=== PATIENT | male | born 1980 | race Caucasian/White ===

== ENCOUNTER 2017-10-03 11:27 | Emergency (ER) | payer MEDICAID ==
[2017-10-03 11:48] VITALS: RESP 16
--- NOTE | 2017-10-03 13:27 | EDPHY ---
General Narrative: CHIEF COMPLAINT: Albuterol refill, Suboxone refill HISTORY OF PRESENT ILLNESS: Patient presents with complaints of needing albuterol refill and Suboxone refill. He says he has history of asthma and uses albuterol frequently. He has a recent lower respiratory infection. He does not want to be evaluated for it as he feels that is mild but does need more albuterol. No chest pain or shortness of breath. Patient cough. He also complains of previous opioid abuse now on Suboxone for the past few months. He ran out of his Suboxone 2 days ago and asking for refill. He is starting to feel shaky and withdrawal from it. No seizure-like activity. No associated complaints or modifying factors. REVIEW OF SYSTEMS: Ten systems reviewed and are negative unless otherwise noted in the HPI PCP: None currently SPECIALISTS: Renée for Suboxone care PAST MEDICAL HISTORY: Previous opiate dependency, chronic asthma controlled PAST SURGICAL HISTORY: No recent surgeries SOCIAL HISTORY: Nonsmoker. FAMILY HISTORY: Noncontributory EXAMINATION General Appearance: Alert, no distress Head: normocephalic, atraumatic Eyes: Pupils equal and round, no conjunctival pallor or injection ENT, Mouth: Mucous membranes moist. Uvula midline. Neck: Normal inspection, supple, non-tender Respiratory: Lungs are clear to auscultation. No wheezing, rhonchi or crackles Cardiovascular: Regular rate and rhythm. No murmur Gastrointestinal: Abdomen is soft and nontender Back: non-tender, no bony abnormalities Neurological: A&O, nonfocal, normal gait Skin: Warm and dry, no rash. No petechiae or purpura Extremities: Nontender, no pedal edema Psychiatric: Mood and affect normal DIFFERENTIAL DIAGNOSES: Including but not limited to chronic asthma, asthma exacerbation, viral illness , pneumonia, bronchitis, opioid dependency MDM: 1:05 p.m. Chronic asthma with request of albuterol inhaler. He has no chest pain. Vital signs are within normal limits without hypoxemia. He is also requesting Suboxone that I had a very lengthy discussion with him about. I informed him that we will not be refilling this. We discuss clonidine and hydroxyzine medications for symptomatic relief of withdrawal. He is in no acute distress and agrees with this plan. I will ask case management to visit with the patient. 1:25 p.m. Barbara PRASAD will visit with the patient provide outpatient resources for Suboxone help. The patient is appreciated this. He is in no acute distress. I do not feel he warrants any further care at this time. He will be discharged home with the above plan and ED precautions. Discharged in stable condition SUPERVISION: Patient was independently examined, but I discussed the case with my secondary supervising physician Dr. Herring - History Smoking Status: Light smoker - Objective Vital Signs: Initial Vital Signs Temperature (C) 99.1 F 10/03/17 11:46 Heart Rate 108 H 10/03/17 11:46 Respiratory Rate 16 10/03/17 11:46 Blood Pressure 133/94 H 10/03/17 11:46 O2 Sat (%) 97 10/03/17 11:46 O2 Delivery Mode Room Air Allergies/Adverse Reactions: No Known Drug Allergies Allergy (Verified 10/03/17 11:48) Home Medications: Medication Instructions Recorded Albuterol [Proventil Inhaler HFA 1 - 2 puffs IH Q4H PRN #1 mdi 10/03/17 (*)] Suboxone 8 mg-2 mg Tablet 10/03/17 clonIDINE [Catapres (*)] 0.1 mg PO TID #5 tab 10/03/17 hydrOXYzine HCL [Hydroxyzine HCl] 50 mg PO Q6-8PRN PRN #7 tablet 10/03/17 Departure - Departure Disposition: Home, Routine, Self-Care Clinical Impression: Opioid dependence in controlled environment Asthma without status asthmaticus Qualifiers: Asthma severity: mild Asthma persistence: intermittent Asthma complication type : uncomplicated Qualified Code(s): J45.20 - Mild intermittent asthma, uncomplicated Condition: Good Instructions: Buprenorphine/Naloxone (Into the mouth), Asthma (ED) Additional Instructions: 1. Medications as prescribed as needed 2. Contact the on-call primary care physician as provided 3. ED precautions as discussed Referrals: [facility],. [Clinic] - As per Instructions Pamela Weber MD [[facility] [place] Primary Care Provider] - As per Instructions Prescriptions: Albuterol [Proventil Inhaler HFA (*)] 1 - 2 puffs IH Q4H PRN #1 mdi PRN Reason: Short Of Breath/Dyspnea clonIDINE [Catapres (*)] 0.1 mg PO TID #5 tab hydrOXYzine HCL [Hydroxyzine HCl] 50 mg PO Q6-8PRN PRN #7 tablet PRN Reason: Itching
[2017-10-03 13:43] VITALS: BP 121/88; PULSE 88; TEMP 98.2; O2SAT 96
--- NOTE | 2017-10-03 14:13 | ASDISCHSUM ---
Discharge Information Plan Status:Home with No Needs Medically Cleared to Leave: Discharge Date:10/03/2017 01:46 PM CM D/C Disposition:Home, Routine, Self-Care ADT D/C Disposition:Home, Routine, Self-Care Projected Discharge Date:10/03/2017 01:46 PM Transportation at D/C:Self Discharge Delay Reason: Follow-Up Date:10/03/2017 01:46 PM Discharge Slot: Final Diagnosis: Placement Information Patient Contact Information Contact Name:RAQUEL Relationship: Address: Work Phone: City: [facility] Phone: State/Zip Code: Email: Financial Information Financial Class: Primary Plan Desc:[employer] Primary Plan Number:[id number] Secondary Plan Desc: Secondary Plan Number: Assessment Information [facility] Progress Note CM Note CM Note Notes: Requested to speak to patient regarding local Suboxone providers and resources. Patient has been receiving Suboxone treatment through [facility] in [place] and that their [place] location has closed. Patient ran out of his Suboxone two days ago and called [facility] on but the earliest they were able to get him an appt is on Wednesday at 1pm. Patient recently moved to [place] and interested in closer treatment clinic options. Patient provided information on [facility] and [facility] (including [place] location). Patient also encouraged to follow up at [facility] for his asthma and other healthcare needs. Patient provided Rxns and list of [facility] locations to get them filled. Patient pleasant and appreciative of assistance. CM available PRN. Date Signed: 10/03/2017 02:10 PM Electronically Signed By:Barbara Shin RN LACE LACE Acuity / Level of Care Answers: No. Comorbidities - select Answers: Chronic pulmonary disease all that apply Emergency dept visits in Answers: 1 last 6 months Score: 3 Date Signed: 10/03/2017 02:12 PM Electronically Signed By:Barbara Shin RN Intervention Information Intervention Type:Health Clinic Date of Service:10/03/2017 02:12 PM Patient Type:Emergency Room Staff Member:SHANICE Shin, Barbara Hours:0.5 Discipline:Baggage Smasher Severity: Comment:Suboxone providers/clinics and [facility] referrals.
== END 2017-10-03 13:46 | disposition home or self-care (01) ==
DX: F11.20 Opioid dependence, uncomplicated (principal); J45.20 Mild intermittent asthma, uncomplicated; F17.200 Nicotine dependence, unspecified, uncomplicated

== ENCOUNTER 2017-10-24 15:02 | Emergency (ER) | payer MEDICAID ==
--- NOTE | 2017-10-24 15:22 | CPEKG ---
Heart Rate: 86 RR Interval: 698 P-R Interval: 132 QRSD Interval: 76 QT Interval: 352 QTC Interval: 421 P Norman: 63 QRS Norman: 72 T Wave Norman: 58 EKG Severity - BORDERLINE ECG - EKG Impression: SINUS RHYTHM EKG Impression: PROBABLE LEFT ATRIAL ABNORMALITY Electronically Signed By: Hortensia Vela 25-Oct-2017 15:49:25
[2017-10-24 15:25] VITALS: TEMP 98.4
--- NOTE | 2017-10-24 15:39 | EDPHY ---
HPI/HX/ROS/PE/MDM Narrative: CHIEF COMPLAINT: Right-sided chest pain HISTORY OF PRESENT ILLNESS: The patient is a 37 y/o male with a history of asthma and a left-sided pneumothorax complaining of right-sided chest pain, onset this morning. The pain is aggravated when turning his chest, coughing, or breathing deeply. Denies pain yesterday or chest discomfort when he went to bed last night. His left-sided pneumothorax was associated with dyspnea and general left-sided chest pain. The pain today is not as severe as his prior pneumothorax. The pain is currently a 6/10. Denies recent fall, working out, or illness. Denies taking medications to relieve symptoms. No fever, chills, shortness of breath, palpitations, vomiting, diarrhea, urinary complaints, headache, lightheadedness. REVIEW OF SYSTEMS: Aside from elements discussed in the HPI, a comprehensive 10-point review of systems was reviewed and is negative. PAST MEDICAL HISTORY: Asthma,left-sided pneumothorax SOCIAL HISTORY: Transient, single, opiate abuse. No marijuana or drug use. VITAL SIGNS: BP: 131/79, others reviewed by me GENERAL: Well-developed, well-nourished, resting comfortably in no respiratory distress. HEENT: Atraumatic. Eyes: No icterus, no injection. Mouth: moist mucous membranes. No erythema or lesions. Neck: supple with no adenopathy. LUNGS: Diminished at bases. Clear to auscultation superiorly, bilaterally; no wheezes, rhonchi or rales. CARDIAC: Right-sided anterior intercostal point tenderness. No crepitus. Regular rate and rhythm, no rubs, murmurs or gallops. ABDOMEN: Soft, nontender, nondistended, bowel sounds normal. BACK: No CVA tenderness. EXTREMITIES: No trauma. No edema. Range of motion is normal throughout. NEURO: Alert and oriented, grossly nonfocal. SKIN: Warm and dry, no rash. PSYCHIATRIC: Normal mentation, no agitation. Portions of this note were transcribed by a curator medical museum. I personally performed a history, physical exam, medical decision making, and confirmed accuracy of information the transcribed note. ED Course: The patient is a 37 y/o male with a history of asthma and a left-sided pneumothorax presenting with right-sided chest pain. On exam he has right-sided anterior intercostal point tenderness without crepitus. He also has diminished breath sounds at the bases bilaterally. EKG and chest x-ray ordered. 1520: 12-LEAD EKG: Please see the full report in [employer] Master. My interpretation: Normal sinus rhythm with a rate of 86 1557: I reviewed chest x-ray, there are no acute findings. 1558: Reassessed patient and discussed imaging findings. Labs ordered to rule out cardiac or pulmonary etiology for chest pain. 1L IV NS and 30mg IV Toradol administered. 1715: Reassessed patient and discussed normal laboratory results. He is not feeling better after IVF and Toradol. GI cocktail administered. 1745: Reassessed patient after GI cocktail, he is still not feeling better. The Toradol did alleviate his pain moderately. I have prescribed him Tramadol and advised him to follow up with [facility]. Return precautions provided; patient is comfortable with this plan. MDM: After history and physical examination, the differential for chest pain was considered, including but not limited to, PTX, pneumomediastinum, ashtma, bronchospasm, PE, myocardial ischemia, acute coronary syndrome, chest wall pain , pleural inflammation and pulmonary infectious causes. - Data Points Imaging Results: CXR: Impression: No acute abnormality. Dictated By: Neptali Dickerson MD Imaging: I viewed and interpreted images myself Laboratory Results: Laboratory Results 10/24/17 15:31 10/24/17 15:31 Medications Given: Discontinued Medications Al Hydroxide/Mg Hydroxide (Maalox Susp) 30 ml PO ONCE ONE Stop: 10/24/17 17:26 Last Admin: 10/24/17 17:37 Dose: 30 ml Hyoscyamine Sulfate (Levsin, Hyomax-Sl) 0.25 mg PO ONCE ONE Stop: 10/24/17 17:26 Last Admin: 10/24/17 17:37 Dose: 0.25 mg Sodium Chloride (Ns) 1,000 mls @ 0 mls/hr IV EDNOW ONE; Wide Open PRN Reason: Protocol Stop: 10/24/17 16:00 Last Admin: 10/24/17 16:14 Dose: 1,000 mls Ketorolac Tromethamine (Toradol) 30 mg IVP EDNOW ONE Stop: 10/24/17 16:02 Last Admin: 10/24/17 16:14 Dose: 30 mg Lidocaine (Lidocaine 2% Viscous) 15 ml PO ONCE ONE Stop: 10/24/17 17:26 Last Admin: 10/24/17 17:37 Dose: 15 ml General Time Seen by Provider: 10/24/17 15:30 Initial Vital Signs: Initial Vital Signs Temperature (C) 36.6 C 10/24/17 15:05 Heart Rate 83 10/24/17 15:05 Respiratory Rate 16 10/24/17 15:05 Blood Pressure 134/69 H 10/24/17 15:05 O2 Sat (%) 98 10/24/17 15:05 O2 Delivery Mode Room Air Allergies/Adverse Reactions: No Known Drug Allergies Allergy (Verified 10/24/17 15:05) Home Medications: Medication Instructions Recorded Albuterol [Proventil Inhaler HFA 1 - 2 puffs IH Q4H PRN #1 mdi 10/03/17 (*)] Suboxone 8 mg-2 mg Tablet 10/03/17 clonIDINE [Catapres (*)] 0.1 mg PO TID #5 tab 10/03/17 hydrOXYzine HCL [Hydroxyzine HCl] 50 mg PO Q6-8PRN PRN #7 tablet 10/03/17 Tramadol HCl 50 mg PO TID PRN #20 tablet 10/24/17 Departure - Departure Disposition: Home, Routine, Self-Care Clinical Impression: Chest wall pain, Chest pain Condition: Good Instructions: Chest Pain (ED), Chest Wall Pain (ED) Additional Instructions: Take Tramadol as prescribed. Follow-up with your primary doctor within 72 hours. Return to the Emergency Department for fever, chest pain, shortness of breath, increasing pain or other worsening of condition. Referrals: [facility],. [Clinic] - As per Instructions Prescriptions: Tramadol HCl 50 mg PO TID PRN #20 tablet PRN Reason: Pain Report Scribed for: Hortensia Vela Report Scribed by: Milly Galdamez Date of Report: 10/24/17 Time of Report: 15:31
[2017-10-24] MEDS ORDERED: NS 1,000 ML IV ONE (15:59)
[2017-10-24] MEDS ORDERED: KETOROLAC 30 MG/1 ML SDV IVP ONE (16:01)
[2017-10-24 16:07] LABS: PLATELET COUNT 273 10^3/uL (150-400)
[2017-10-24 16:18] VITALS: RESP 18
[2017-10-24 17:20] VITALS: O2SAT 99
[2017-10-24] MEDS ORDERED: MAG HYDROX/AL HYDROX/SIMETH 30 ML UDCUP PO ONE (17:25)
[2017-10-24] MEDS ORDERED: HYOSCYAMINE SULFATE 0.125 MG TAB PO ONE (17:25)
[2017-10-24] MEDS ORDERED: LIDOCAINE 2% VISCOUS 15 ML UDCUP PO ONE (17:25)
[2017-10-24 17:53] VITALS: BP 123/73; PULSE 73
== END 2017-10-24 18:00 | disposition home or self-care (01) ==
DX: R07.89 Other chest pain (principal); J45.909 Unspecified asthma, uncomplicated
CPT/HCPCS: 96374; J1885

== ENCOUNTER 2018-11-12 07:06 | Emergency (ER) | payer MEDICAID ==
[2018-11-12] MEDS ORDERED: ONDANSETRON DISINTEGRATING 4 MG TAB PO ONE (07:35)
--- NOTE | 2018-11-12 07:40 | EDPHY ---
H & P Stated Complaint: at [facility] for heroin w/d, sent here for bradycardia Time Seen by Provider: 11/12/18 07:28 HPI/ROS: CHIEF COMPLAINT: Heroin withdrawal, bradycardia HISTORY OF PRESENT ILLNESS: The patient is a 38-year-old man who is sent from the [facility] for asymptomatic bradycardia with a heart rate in the 40s. He is currently going through heroin withdrawal for the last 2 days. He is taking hydroxyzine and Chantix. He denies beta-blockers. He denies clonidine. He has been nauseous and vomiting. He is slightly hypertensive. He denies chest pain or palpitations or shortness of breath. No history of arrhythmias. He is no longer taking Suboxone. No lightheadedness or dizziness. Severity: Moderate Modifying factors: None REVIEW OF SYSTEMS: Constitutional: denies: chills, fever, recent illness, recent injury EENTM: denies: blurred vision, double vision, nose congestion Respiratory: denies: cough, shortness of breath Cardiac: See HPI denies: chest pain, irregular heart rate, lightheadedness, palpitations Gastrointestinal/Abdominal: See HPI denies: abdominal pain, diarrhea, blood streaked stools Genitourinary: denies: dysuria, frequency, hematuria, pain Musculoskeletal: denies: joint pain, muscle pain Skin: denies: lesions, rash, jaundice, bruising Neurological: denies: headache, numbness, paresthesia, tingling, dizziness, weakness Hematologic/Lymphatic: denies: blood clots, easy bleeding, easy bruising Immunologic/allergic: denies: HIV/AIDS, transplant 10 systems reviewed and negative except as noted EXAM: GENERAL: Well-appearing, well-nourished and in no acute distress. HEAD: Atraumatic, normocephalic. EYES: Pupils equal round and reactive to light, extraocular movements intact, sclera anicteric, conjunctiva are normal. ENT: TMs normal, nares patent, oropharynx clear without exudates. Moist mucous membranes. NECK: Normal range of motion, supple without lymphadenopathy or JVD. LUNGS: Breath sounds clear to auscultation bilaterally and equal. No wheezes rales or rhonchi. HEART: Slightly bradycardic, Regular rate and rhythm without murmurs, rubs or gallops. ABDOMEN: Soft, nontender, normoactive bowel sounds. No guarding, no rebound. No masses appreciated. BACK: No CVA tenderness, no spinal tenderness, step-offs or deformities EXTREMITIES: Normal range of motion, no pitting or edema. No clubbing or cyanosis. NEUROLOGICAL: Cranial nerves II through XII grossly intact. Normal speech, normal gait. 5/5 strength, normal movement in all extremities, normal sensation , normal reflexes PSYCH: Normal mood, normal affect. SKIN: Warm, dry, normal turgor, no visible rashes or lesions. Source: Patient Exam Limitations: No limitations - Personal History Current Tetanus/Diphtheria Vaccine: Yes - Medical/Surgical History Hx Asthma: Yes Hx Chronic Respiratory Disease: No Hx Diabetes: No Hx Cardiac Disease: No Hx Renal Disease: No Hx Cirrhosis: No Hx Alcoholism: No Hx HIV/AIDS: No Hx Splenectomy or Spleen Trauma: No Other PMH: left shoulder surgery, opiate abuse - Family History Significant Family History: No pertinent family hx - Social History Smoking Status: Current every day smoker Alcohol Use: None Drug Use: Heroin Constitutional: Initial Vital Signs Temperature (C) 36.6 C 11/12/18 07:10 Heart Rate 45 L 11/12/18 07:10 Respiratory Rate 16 11/12/18 07:10 Blood Pressure 148/88 H 11/12/18 07:10 O2 Sat (%) 96 11/12/18 07:10 O2 Delivery Mode Room Air Allergies/Adverse Reactions: No Known Drug Allergies Allergy (Verified 10/24/17 15:05) Home Medications: Medication Instructions Recorded Albuterol [Proventil Inhaler HFA 1 - 2 puffs IH Q4H PRN #1 mdi 10/03/17 (*)] Medical Decision Making - Diagnostics EKG Interpretation: An EKG obtained and was read and documented in trace view. Please see trace view for full reading and report. Sinus bradycardia, no acute ischemic changes ED Course/Re-evaluation: The patient is likely reflex bradycardic because he is hypertensive from his withdrawal. He primarily complains of nausea vomiting. Will treat with Zofran and oral hydration. Will obtain EKG. Otherwise the patient would like to go [facility] to [facility]. He has no complaints other than the nausea. He is ambulating without difficulty. His vomiting has been controlled. Electrolytes unremarkable. Patient declines further workup or testing. Differential Diagnosis: Partial list of the Differential diagnosis considered include but were not limited to; bradycardia, hypertension, opiate withdrawal and although unlikely based on the history and physical exam, I also considered arrhythmia, electrolyte abnormality, myocardial infarction, PE. - Data Points Laboratory Results: 11/12/18 07:55 POC Hgb 17.0 gm/dL gm/dL (13.7-17.5) POC Hct 50 % % (40-51) POC Sodium 141 mEq/L mEq/L (135-145) POC Potassium 4.1 mEq/L mEq/L (3.3-5.0) POC Chloride 104 mEq/L mEq/L (97-110) POC Total CO2 23 mEq/L mEq/L (22-31) POC BUN 19 mg/dL mg/dL (7-23) POC Creatinine 0.8 mg/dL mg/dL (0.7-1.3) POC Glucose 155 mg/dL H mg/dL (70-100) Medications Given: Discontinued Medications Ondansetron HCl (Zofran Odt) 4 mg PO EDNOW ONE Stop: 11/12/18 07:36 Last Admin: 11/12/18 07:37 Dose: 4 mg Point of Care Test Results: Chemistry 11/12/18 07:55 POC Sodium 141 mEq/L mEq/L (135-145) POC Potassium 4.1 mEq/L mEq/L (3.3-5.0) POC Chloride 104 mEq/L mEq/L (97-110) POC Total CO2 23 mEq/L mEq/L (22-31) POC BUN 19 mg/dL mg/dL (7-23) POC Creatinine 0.8 mg/dL mg/dL (0.7-1.3) POC Glucose 155 mg/dL H mg/dL (70-100) ISTAT H&H 11/12/18 07:55 POC Hgb 17.0 gm/dL gm/dL (13.7-17.5) POC Hct 50 % % (40-51) Departure - Departure Disposition: Home, Routine, Self-Care Clinical Impression: Heroin withdrawal Hypertension Qualifiers: Hypertension type: unspecified Qualified Code(s): I10 - Essential (primary) hypertension Condition: Fair Instructions: Hypertension (ED), Opioid Withdrawal (ED) Referrals: NONE *PRIMARY CARE P,. [Primary Care Provider] - As per Instructions [facility],. [Clinic] - As per Instructions
--- NOTE | 2018-11-12 07:43 | CPEKG ---
Test Reason : OPEN Blood Pressure : / mmHG Vent. Rate : 044 BPM Atrial Rate : 000 BPM P-R Int : 128 ms QRS Dur : 078 ms QT Int : 469 ms P-R-T Axes : 055 075 062 degrees QTc Int : 402 ms Sinus bradycardia Confirmed by Olivier Nash ([id number]) on 11/12/2018 7:42:51 AM Referred By: Olivier Nash Confirmed By:Olivier Nash
[2018-11-12 08:09] VITALS: BP 142/90
== END 2018-11-12 08:09 | disposition home or self-care (01) ==
LOC: EDUNIT#
DX: F11.23 Opioid dependence with withdrawal (principal); I10 Essential (primary) hypertension
CPT/HCPCS: 82435-PO; 82565-PO; 82947-PO; 84132-PO; 84295-PO; 84520-PO; 85014-ER

== ENCOUNTER 2019-02-09 12:47 | Emergency (ER) | payer MEDICAID ==
--- NOTE | 2019-02-09 13:58 | EDPHY ---
H & P Stated Complaint: PAIN/SOB R UPPER LUNG HX SPONTANEOUS PNEUMO ON L IN PAST Time Seen by Provider: 02/09/19 12:55 HPI/ROS: CHIEF COMPLAINT: Right sided chest pain HISTORY OF PRESENT ILLNESS: 38-year-old male with a history of left spontaneous pneumothorax presents with right-sided chest pain. Onset of right upper chest pain this morning, gradually increasing. The pain is moderate, increases with torso movement and with deep inspiration. Similar to prior pneumothorax 8 years ago. No shortness of breath, recent URI or cough. No trauma. REVIEW OF SYSTEMS: complete 10 point ROS reviewed and is negative except for the noted elements in the HPI - Personal History Current Tetanus Diphtheria and Acellular Pertussis (TDAP): Yes - Medical/Surgical History Hx Asthma: Yes Hx Chronic Respiratory Disease: No Hx Diabetes: No Hx Cardiac Disease: No Hx Renal Disease: No Hx Cirrhosis: No Hx Alcoholism: No Hx HIV/AIDS: No Hx Splenectomy or Spleen Trauma: No Other PMH: left shoulder surgery, opiate abuse L SPONTANEOUS PNEUMOTHORAX - Family History Significant Family History: No pertinent family hx - Social History Smoking Status: Current every day smoker Alcohol Use: Sober - Physical Exam Exam: General Appearance: Alert, pleasant Eyes: Pupils equal and round, no conjunctival pallor ENT, Mouth: Mucous membranes moist Neck: Normal inspection Respiratory: normal inspection, no tenderness, Lungs are clear to auscultation Cardiovascular: Regular rate and rhythm, no murmur Gastrointestinal: Abdomen is soft and nontender Neurological: A&O, nonfocal exam Skin: Warm and dry, no rash Extremities: no change in pain with Rt shoulder ROM, no pedal edema or calf tenderness Psychiatric: Mood and affect normal Constitutional: Initial Vital Signs Temperature (C) 37.2 C 02/09/19 12:48 Heart Rate 85 02/09/19 12:48 Respiratory Rate 18 02/09/19 12:48 Blood Pressure 135/80 H 02/09/19 12:48 O2 Sat (%) 97 02/09/19 12:48 O2 Delivery Mode Room Air Allergies/Adverse Reactions: No Known Drug Allergies Allergy (Verified 02/09/19 12:48) Home Medications: Medication Instructions Recorded Albuterol [Proventil Inhaler HFA 1 - 2 puffs IH Q4H PRN #1 mdi 10/03/17 (*)] Medical Decision Making - Diagnostics Imaging Results: Chest X-Ray 02/09/19 12:55 Impression: Stable chest. Imaging: I viewed and interpreted images myself ED Course/Re-evaluation: Assess: right pleuritic c/p, nontraumatic. CXR negative for PTX, including expiratory view. PERC negative, can safely exclude PE. Sx c/w musculoskeletal cp, declines further w/u. Ibuprofen given. Warning signs discussed. Differential Diagnosis: includes and not limited to PTX, pneumonia, PE, pleurisy, ACS - Data Points Medications Given: Discontinued Medications Ibuprofen (Motrin) 600 mg PO EDNOW ONE Stop: 02/09/19 14:33 Last Admin: 02/09/19 14:48 Dose: 600 mg Departure - Departure Disposition: Home, Routine, Self-Care Clinical Impression: Chest wall pain Condition: Good Instructions: Chest Wall Pain (ED) Additional Instructions: Return for worsening symptoms or any concerns. Ibuprofen 600 mg 3 times daily while the pain persists. Referrals: Ede Arcos DO [Doctor of Osteopathy] - As per Instructions
[2019-02-09] MEDS ORDERED: IBUPROFEN 600 MG TAB PO ONE (14:32)
[2019-02-09 14:55] VITALS: BP 121/78
== END 2019-02-09 14:51 | disposition home or self-care (01) ==
DX: R07.89 Other chest pain (principal)